=== PATIENT | female | born 2000 | race Caucasian/White ===

== ENCOUNTER → 2023-12-10 14:59 | Outpatient (REF) | payer BC, SELFPAY | LOC: WDC 14:59 | PROVIDERS: ATTENDING PHYSICIAN Surgery | DX: R92.2 Inconclusive mammogram (principal) | CPT/HCPCS: 76641 ==

== ENCOUNTER → 2025-01-31 14:06 | Outpatient (REF) | payer BC, SELFPAY | LOC: WDC 14:06 | PROVIDERS: ATTENDING PHYSICIAN Surgery | DX: R92.2 Inconclusive mammogram (principal) | CPT/HCPCS: 76641 ==